=== PATIENT | female | born 1980 | race Caucasian/White ===

== ENCOUNTER 2020-12-07 13:00 | Emergency (ER) | payer OTHER ==
[~2020-12-07] VITALS: Ht 162.6 cm; Wt 170.0 kg
[2020-12-07] MEDS ORDERED: IVERMECTIN3 MG PO (14:12)
[2020-12-07] MEDS ORDERED: BACTROBAN TOP (14:12)
[2020-12-07 14:38] VITALS: BP 138/82
== END 2020-12-07 14:38 | disposition home or self-care (01) ==
LOC: ED 13:00
DX: B86 Scabies (principal)

== ENCOUNTER 2020-12-11 12:25 | Emergency (ER) | payer OTHER ==
[~2020-12-11] VITALS: Ht 162.6 cm; Wt 160.0 kg
[~2020-12-11 12:25] MED LIST: BACTROBAN TOP; IVERMECTIN3 MG PO
[2020-12-11 13:28] VITALS: BP 181/89
[2020-12-11] MEDS ORDERED: MEDDOSEPAK PO (13:30)
== END 2020-12-11 13:30 | disposition home or self-care (01) ==
LOC: ED 12:25
DX: B34.9 Viral infection, unspecified (principal); I10 Essential (primary) hypertension; F17.210 Nicotine dependence, cigarettes, uncomplicated; Z20.822 Contact with and (suspected) exposure to COVID-19

== ENCOUNTER 2020-12-26 20:48 | Emergency (ER) | payer OTHER ==
[~2020-12-26] VITALS: Ht 162.6 cm; Wt 168.0 kg
[~2020-12-26 20:48] MED LIST changes: +MEDDOSEPAK PO
[2020-12-26 21:54] LABS: HEMOGLOBIN 11.1 g/dl (12.0-16.0); IMMATURE GRANULOCYTES 0.3 % (0.0-5.0); MEAN CELL VOLUME 94.7 fL CALC (80.0-100.0); MEAN CORPUSCULAR HGB 29.2 pG CALC (26.0-32.0); MEAN CORPUSCULAR HGB CONC 30.8 g/dL CAL (32.0-36.0); NEUT# 7.71 thou/uL (2.00-7.15); RED BLOOD COUNT 3.8 mill/uL (4.20-5.60); RED CELL DISTRI WIDTH 12.7 % (11.5-15.5)
[2020-12-26] MEDS ORDERED: OXYCOD-APAP1 TA1 PO (22:19)
[2020-12-26] MEDS ORDERED: CYCLOBENZAPRINE10 MG PO (22:19)
[2020-12-26] MEDS ORDERED: VENLAFAXINE HCL75 M1 PO (22:20)
[2020-12-26] MEDS ORDERED: OMEPRAZOLE DR40 MG (22:20)
[2020-12-26] MEDS ORDERED: CELEBREX100 M1 PO (22:20)
[2020-12-26] MEDS ORDERED: TRIAMCINOLON0.11 EX (22:55)
[2020-12-26 23:01] VITALS: BP 96/56
== END 2020-12-26 23:10 | disposition home or self-care (01) ==
LOC: ED 20:48
PROVIDERS: Family Medicine
DX: B34.9 Viral infection, unspecified (principal); L57.8 Other skin changes due to chronic exposure to nonionizing radiation; F17.210 Nicotine dependence, cigarettes, uncomplicated; I10 Essential (primary) hypertension

== ENCOUNTER 2021-07-26 13:12 | Emergency (ER) | payer OTHER ==
[~2021-07-26] VITALS: Ht 162.6 cm; Wt 136.0 kg
[~2021-07-26 13:12] MED LIST changes: +CELEBREX100 M1 PO; +CYCLOBENZAPRINE10 MG PO; +OMEPRAZOLE DR40 MG; +OXYCOD-APAP1 TA1 PO; +TRIAMCINOLON0.11 EX; +VENLAFAXINE HCL75 M1 PO
[2021-07-26 14:11] LABS: ALBUMIN 3.8 g/dL (3.2-5.0); ALKALINE PHOSPHATASE 106 u/l (38-126); ANION GAP 13 (6-22 (CALC)); BILIRUBIN, TOTAL 0.4 mg/dL (0.0-1.4); BUN 11 mg/dL (7-17); BUN/CREATININE RATIO 19 (12-20 (CALC)); CARBON DIOXIDE 26 mmol/l (22-30); CHLORIDE 101 mmol/l (95-108); CREATININE 0.6 mg/dL (0.5-1.0); GFR FOR AFR.AMER. > 60 ML/MIN (>=60 (CALC)); GFR OTHER RACES > 60 ML/MIN (>=60 (CALC)); POTASSIUM 4.2 mmol/l (3.5-5.1); SGOT/AST 32 u/l (14-36); SODIUM 135 mmol/l (137-146)
[2021-07-26 14:27] LABS: IMMATURE GRANULOCYTES 0.3 % (0.0-5.0); MEAN CORPUSCULAR HGB 27.6 pG CALC (26.0-32.0); MEAN CORPUSCULAR HGB CONC 31.1 g/dL CAL (32.0-36.0); NEUT# 4.88 thou/uL (2.00-7.15); RED BLOOD COUNT 4.97 mill/uL (4.20-5.60); RED CELL DISTRI WIDTH 13.5 % (11.5-15.5)
[2021-07-26 14:28] LABS: HEMOGLOBIN 13.7 g/dl (12.0-16.0); MEAN CELL VOLUME 88.5 fL CALC (80.0-100.0)
[2021-07-26 15:45] VITALS: BP 138/89
[2021-07-26] MEDS ORDERED: ONDANSETRON4 MG PO (15:47)
[2021-07-26 15:51] LABS: URINE BLOOD DIPSTICK TRACE-INTACT (NEGATIVE); URINE COLOR YELLOW; URINE GLUCOSE - DIPSTICK NEGATIVE (NEGATIVE); URINE KETONE TRACE mg/dL (NEGATIVE); URINE LEUK ESTERASE NEGATIVE (NEGATIVE); URINE PH 5.5 (4.5-8.0); URINE PROTEIN - DIPSTICK 30 mg/dL (NEG-TRACE); URINE SPECIFIC GRAVITY >=1.030; URINE UROBILINOGEN - DIPSTICK 0.2 E.U./dL (0.2)
[2021-07-26 15:54] LABS: URINE BACTERIA FEW hpf; URINE BILIRUBIN - DIPSTICK NEGATIVE (NEGATIVE); URINE NITRITE - DIPSTICK POSITIVE (Negative); URINE RBC 0-2 RBC/hpf (0-5); URINE SQUAMOUS EPITHELIAL CELL MANY EPI/hpf (0-FEW); URINE WBC 0-2 WBC/hpf (0-5)
== END 2021-07-26 15:56 | disposition home or self-care (01) ==
LOC: ED 13:12
PROVIDERS: Family Medicine
DX: R11.2 Nausea with vomiting, unspecified (principal); I10 Essential (primary) hypertension; R10.31 Right lower quadrant pain; R19.7 Diarrhea, unspecified; F17.200 Nicotine dependence, unspecified, uncomplicated; R82.71 Bacteriuria
CPT/HCPCS: Q9967

== ENCOUNTER 2021-08-06 11:22 | Emergency (ER) | payer OTHER ==
[~2021-08-06] VITALS: Ht 162.6 cm; Wt 159.0 kg
[~2021-08-06 11:22] MED LIST changes: +ONDANSETRON4 MG PO
[2021-08-06 11:31] VITALS: BP 163/108
[2021-08-06 12:01] VITALS: BP 118/76
[2021-08-06 12:03] LABS: HEMATOCRIT 39.2 % (37.0-47.0); IMMATURE GRANULOCYTES 0.4 % (0.0-5.0); MEAN CELL VOLUME 92.5 fL CALC (80.0-100.0); MEAN CORPUSCULAR HGB 27.4 pG CALC (26.0-32.0); MEAN CORPUSCULAR HGB CONC 29.6 g/dL CAL (32.0-36.0); NEUT# 10.6 thou/uL (2.00-7.15); RED BLOOD COUNT 4.24 mill/uL (4.20-5.60); RED CELL DISTRI WIDTH 13.7 % (11.5-15.5)
[2021-08-06 12:31] VITALS: BP 120/97
[2021-08-06 12:40] LABS: ALBUMIN 3.6 g/dL (3.2-5.0); ALKALINE PHOSPHATASE 89 u/l (38-126); ANION GAP 11 (6-22 (CALC)); BUN 14 mg/dL (7-17); BUN/CREATININE RATIO 29 (12-20 (CALC)); CARBON DIOXIDE 28 mmol/l (22-30); CHLORIDE 102 mmol/l (95-108); CREATININE 0.5 mg/dL (0.5-1.0); GFR FOR AFR.AMER. > 60 ML/MIN (>=60 (CALC)); GFR OTHER RACES > 60 ML/MIN (>=60 (CALC)); POTASSIUM 3.9 mmol/l (3.5-5.1); SGOT/AST 26 u/l (14-36); SODIUM 137 mmol/l (137-146); TOTAL PROTEIN 6.6 g/dL (6.3-8.2)
[2021-08-06 12:41] LABS: HEMOGLOBIN 11.6 g/dl (12.0-16.0)
[2021-08-06 12:46] LABS: BILIRUBIN, TOTAL 0.2 mg/dL (0.0-1.4)
[2021-08-06] MEDS ORDERED: CHERATUSSIN PO (13:46)
[2021-08-06] MEDS ORDERED: DOXY-CAPS100 MG PO (13:46)
[2021-08-06 14:04] VITALS: BP 120/97
== END 2021-08-06 14:11 | disposition home or self-care (01) ==
LOC: ED 11:22
PROVIDERS: Family Medicine
DX: J06.9 Acute upper respiratory infection, unspecified (principal); Z20.828 Contact with and (suspected) exposure to other viral communicable diseases